=== PATIENT | male | born 1935 | race Caucasian/White ===

== ENCOUNTER 2022-01-07 05:19 | Inpatient (IN) | payer MEDICARE ==
[2022-01-01 15:05] VITALS: BMI 30.1
[2022-01-07] MEDS ORDERED: Vancomycin 1.5 GRAM/300 ML BAG 1.5 GM in Premix Bag 1 BAG IVPB SCH (06:00)
[2022-01-07] MEDS ORDERED: Sodium Chloride 0.9% 100 ML ONE (06:02)
[2022-01-07] MEDS ORDERED: Tranexamic Acid 1,000 MG/10 ML VIAL ONE (06:02)
[2022-01-07] MEDS ORDERED: Fentanyl 100 MCG/2 ML VIAL ONE ×2 (06:51→07:07)
[2022-01-07] MEDS ORDERED: Lidocaine 1% (PF) 30 ML VIAL ONE (06:53)
[2022-01-07] MEDS ORDERED: Midazolam HCl 2 mg/2 ml Vial ONE (07:07)
[2022-01-07] MEDS ORDERED: ceFAZolin 2 GM/Dextrose 50 ML IVPB ONE (07:16)
[2022-01-07] MEDS ORDERED: Ondansetron PF 4 MG/2 ML Vial IVP PRN (07:21)
[2022-01-07] MEDS ORDERED: Promethazine HCl 25 MG/ML VIAL IM PRN (07:21)
[2022-01-07] MEDS ORDERED: Zolpidem Tartrate 5 MG TAB PO PRN (07:21)
[2022-01-07] MEDS ORDERED: HYDROcodone/Acetaminophen 10/325 mg Tablet PO PRN (07:21)
[2022-01-07] MEDS ORDERED: diphenhydrAMINE 25 MG CAP PO PRN (07:21)
[2022-01-07] MEDS ORDERED: Acetaminophen 325 MG TAB PO PRN (07:21)
[2022-01-07] MEDS ORDERED: Fentanyl 100 MCG/2 ML VIAL SLOW IVP PRN (07:21)
[2022-01-07] MEDS ORDERED: Bupivacaine PF 0.5% 30 ML VIAL ONE (07:44)
[2022-01-07] MEDS ORDERED: Aspirin Chewable 81 MG TAB PO SCH (09:00)
[2022-01-07] MEDS: Aspirin 81 mg Enteric Coated Tablet PO SCH ×2 (11:17→20:20)
[2022-01-07] MEDS: ceFAZolin 2 GM/Dextrose 50 ML 2 GM in Premix Bag 1 BAG IVPB SCH ×2 (15:20→23:14)
[2022-01-07] MEDS: HYDROcodone/Acetaminophen 10/325 mg Tablet PO PRN ×2 (16:03→23:14)
[2022-01-08 05:03] LABS: Hemoglobin 13.4 g/dL (14.0-18.0); Mean Corpuscular HGB CONC 31.9 g/dL (32.0-36.0); Mean Corpuscular Hemoglobin 34.8 pg (27.0-31.0); Mean Platelet Volume 8.3 fL (7.4-10.4); Platelet Count 121 thou/uL (130-400); RBC Distribution Width 12.3 % (11.5-14.5); Red Blood Cell (RBC) Count 3.85 mill/uL (4.70-6.10); White Blood Cell (WBC) Count 6.1 thou/uL (4.8-10.8)
[2022-01-08 07:54] VITALS: BP 118/77; TEMP 98.9
[2022-01-08] MEDS ORDERED: Ferrous Gluconate 324 MG TAB PO SCH (08:00)
[2022-01-08] MEDS: HYDROcodone/Acetaminophen 10/325 mg Tablet PO PRN (08:48)
[2022-01-08] MEDS: Aspirin 81 mg Enteric Coated Tablet PO SCH (08:49)
[2022-01-08] MEDS ORDERED: Senokot S 8.6-50 MG TAB PO SCH (09:00)
[2022-01-08] MEDS ORDERED: Multivitamin W/ Minerals 1 TAB PO SCH (09:00)
== END 2022-01-08 10:30 | disposition home or self-care (01) | DRG 470 ==
LOC: SDC 05:19 → SURG A 07:21
PROVIDERS: ADMIT Orthopaedic Surgery; ATTEND Orthopaedic Surgery
PROC: 0SR9039 Replacement of Right Hip Joint with Ceramic Synthetic Substitute, Cemented, Open Approach (ICD-10-PCS; principal; 2022-01-07)
DX: M16.0 Bilateral primary osteoarthritis of hip (principal); M10.9 Gout, unspecified; I48.91 Unspecified atrial fibrillation; Z98.890 Other specified postprocedural states; Z86.73 Personal history of transient ischemic attack (TIA), and cerebral infarction without residual deficits; Z85.89 Personal history of malignant neoplasm of other organs and systems; Z95.0 Presence of cardiac pacemaker; Z01.818 Encounter for other preprocedural examination; Z20.822 Contact with and (suspected) exposure to COVID-19
CPT/HCPCS: 36415; 80048; 85025; 85027; 85610; 87081; 93005; 93010; C1776; J0690; J2001; J2250; J3010; J3370; J3490; S0020; U0003; U0005

== ENCOUNTER 2022-08-12 14:45 | Outpatient (CLI) | payer MEDICARE | END 2022-08-12 14:46 | disposition home or self-care (01) | LOC: CT 14:45 | PROVIDERS: ATTEND Family Medicine | DX: R51.9 Headache, unspecified (principal) | CPT/HCPCS: 70450 ==